=== PATIENT | female | born 1985 | race Caucasian/White ===

== ENCOUNTER 2016-04-19 22:34 | Emergency (ER) | payer OTHER ==
[2016-04-19] MEDS ORDERED: OPTIRAY 350 100 ML VIAL HMH IV ONE (22:35)
[2016-04-19] MEDS ORDERED: SODIUM CHLORIDE 0.9% 2,000 ML ONE (23:00)
[2016-04-19] MEDS ORDERED: ONDANSETRON 4 MG VIAL ONE (23:22)
[2016-04-20] MEDS ORDERED: SODIUM CHLORIDE 0.9% 1,000 ML ONE (01:35)
[2016-04-20] MEDS ORDERED: MORPHINE 4 MG/ML SYR ONE (02:06)
[2016-04-20] MEDS ORDERED: ONDANSETRON 4 MG VIAL ONE (02:06)
== END 2016-04-20 08:22 | disposition home or self-care (01) ==
LOC: ER 22:34
DX: E11.65 Type 2 diabetes mellitus with hyperglycemia (principal); R10.32 Left lower quadrant pain; R10.12 Left upper quadrant pain; Z79.4 Long term (current) use of insulin; Z79.899 Other long term (current) drug therapy
CPT/HCPCS: 36415; 74022; 74177; 80053; 81003; 82009; 82803; 82947; 83690; 84703; 85025; 87491; 87591; 87800; 96372; 96374; 96375; 96376